=== PATIENT | female | born 1990 | race Caucasian/White ===

== ENCOUNTER 2018-05-02 20:59 | Emergency (ER) | payer BC, OTHER ==
[2018-05-02] MEDS ORDERED: HYDROcodone/Acetaminophen 10/325 mg Tablet ONE (21:26)
[2018-05-02] MEDS ORDERED: Amoxicillin/Potassium Clav 875 MG TAB ONE (21:26)
[2018-05-02] MEDS ORDERED: Adacel (T-DAP) 0.5 ML VIAL ONE (21:26)
[2018-05-02] MEDS ORDERED: Bacitracin Zinc 1 Packet ONE (21:26)
== END 2018-05-02 22:37 | disposition home or self-care (01) ==
LOC: ERS 20:59
DX: S71.152A Open bite, left thigh, initial encounter (principal); S71.151A Open bite, right thigh, initial encounter; S51.851A Open bite of right forearm, initial encounter; W54.0XXA Bitten by dog, initial encounter
CPT/HCPCS: 90471; 90715